=== PATIENT | male | born 1945 | race Caucasian/White ===

== ENCOUNTER 2020-05-20 05:50 | Inpatient (IN) | payer OTHER, MEDICARE ==
[~2020-05-20] VITALS: Ht 172.7 cm; Wt 65.0 kg
[~2020-05-20 05:50] MED LIST: ASPI-1264 PO; IBUP-1986 PO; PANT-47 PO
[2020-05-20] MEDS ORDERED: magnesium 2GM in 50ml NS 50 ML IV ONE (06:10)
[2020-05-20] MEDS ORDERED: acetaminophen 325mg tablet PO ONE (06:10)
[2020-05-20] MEDS ORDERED: ketorolac tromethamine 15mg/ml inj. IV ONE (06:10)
[2020-05-20] MEDS ORDERED: LIDOcaine 5% patch TP ONE (06:10)
[2020-05-20] MEDS ORDERED: orphenadrine citrate 60mg/2ml inj. IM ONE (06:10)
[2020-05-20] MEDS ORDERED: normal saline 1000ML IV soln IV ONE (06:40)
[2020-05-20] MEDS ORDERED: morphine 4 MG/ML inj SYRINge IV ONE (06:50)
[2020-05-20] MEDS ORDERED: ondansetron/PF 4mg/2ml inj IV ONE (06:50)
--- NOTE | 2020-05-20 07:02 | NUR ---
Pt. to CT. with RN
[2020-05-20] MEDS ORDERED: fentaNYL/PF 50MCG/1 ML 2ML syringe IV ONE (07:15)
[2020-05-20] MEDS ORDERED: dexamethasone sod phosphate 10mg/ml inj IV STA ×2 (07:39→07:40)
[2020-05-20] MEDS ORDERED: CefTRIAXone 2gm/D5W 50ml BAG 50 ML IV ONE (07:40)
[2020-05-20] MEDS ORDERED: ampicillin inj 2 GM in normal saline 100ml IV soln 100 ML IV ONE (07:50)
[2020-05-20] MEDS ORDERED: vancomycin/NS 1 GM ADD-VANTAGE 250 ML X 1 DOSE IV ONE (07:55)
[2020-05-20 07:56] LABS: BASOPHILS % (AUTO) 0.2 % (0-1); EOSINOPHILS % (AUTO) 0.1 % (0-6); HEMATOCRIT 46.2 % (42.0-52.0); HEMOGLOBIN 15.5 g/dl (14.0-17.9); LYMPHOCYTES # (AUTO) 1.1 X10'3 (1.1-4.8); LYMPHOCYTES % (AUTO) 8.8 % (21-51); MEAN CORPUSCULAR HEMOGLOBIN 31.3 PG (27.0-31.0); MEAN CORPUSCULAR HGB CONC 33.6 g/dL (33.0-36.5); MEAN PLATELET VOLUME 9.3 FL (7.4-10.4); MONOCYTES # (AUTO) 1.1 X10'3 (0-0.9); MONOCYTES % (AUTO) 8.5 % (2-12); NEUTROPHILS # (AUTO) 10.8 X10'3 (1.8-7.7); NEUTROPHILS % (AUTO) 82.4 % (42-75); PLATELET COUNT 232 X10'3 (140-440); RED BLOOD COUNT 4.97 X10'6 (4.70-6.10); RED CELL DISTRIBUTION WIDTH 12.2 % (11.5-14.5); WHITE BLOOD COUNT 13.1 X10'3 (4.5-11.0)
[2020-05-20] MEDS ORDERED: CefTRIAXone 2gm/D5W 50ml BAG 50 ML IV SCH (08:00)
[2020-05-20 08:44] LABS: ALANINE AMINOTRANSFERASE 31 U/L (12-78); ALBUMIN 3.7 G/DL (3.4-5.0); ALBUMIN/GLOBULIN RATIO 0.9 (1.1-1.5); ALKALINE PHOSPHATASE 80 IU/L (46-116); ANION GAP 9 (8-16); ASPARTATE AMINO TRANSFERASE 15 U/L (10-37); BLOOD UREA NITROGEN 14 MG/DL (7-18); BUN/CREATININE RATIO 8.1 (5.4-32.0); CALCIUM 10.3 MG/DL (8.5-10.1); CHLORIDE 101 MMOL/L (99-107); CREATININE 1.72 MG/DL (0.60-1.10); GLUCOSE 164 MG/DL (70-104); MAGNESIUM 2.1 MG/DL (1.5-2.4); POTASSIUM 4.1 MMOL/L (3.5-5.1); SODIUM 137 MMOL/L (135-145); TOTAL CARBON DIOXIDE 26.7 MMOL/L (24-32); TOTAL PROTEIN 7.8 G/DL (6.4-8.2); eGFR 39 ML/MIN
[2020-05-20 09:00] LABS: GLUCOSE,CSF 99 MG/DL (40-75); TOTAL PROTEIN,CSF 43 MG/DL (30-60)
[2020-05-20 09:10] LABS: APPEARANCE,CSF CLEAR; CSF SUPERNATANT COLOR COLORLESS; CSF VOLUME 8 ML; TUBE# COUNTED 1
[2020-05-20 09:12] LABS: APPEARANCE,CSF CLEAR; CSF RBC 1 /CU MM (0); CSF SUPERNATANT COLOR COLORLESS; CSF VOLUME 8 ML; CSF WBC CT 1 /CU MM (0-5); TUBE# COUNTED 4
[2020-05-20 09:13] LABS: CSF RBC 0 /CU MM (0); CSF WBC CT 2 /CU MM (0-5)
[2020-05-20] MEDS ORDERED: potassium Cl 20 mEq SR tablet PO PRN ×2 (10:00)
[2020-05-20] MEDS ORDERED: magnesium 4gm in 100ml NS 100 ML IV PRN (10:00)
[2020-05-20] MEDS ORDERED: potassium Cl 40MEQ/1/2NS 520ml 520 ML IV PRN ×2 (10:00)
[2020-05-20] MEDS ORDERED: magnesium 2GM in 50ml NS 50 ML IV PRN (10:00)
[2020-05-20] MEDS ORDERED: magnesium Cl slow-release 64mg tablet PO PRN (10:00)
[2020-05-20] MEDS ORDERED: acetaminophen 325mg tablet PO PRN ×2 (10:00)
[2020-05-20] MEDS ORDERED: ondansetron/PF 4mg/2ml inj IV PRN (10:00)
[2020-05-20 10:41] LABS: CLARITY,URINE SLIGHTLY CLOUDY (Clear); COLOR,URINE YELLOW (Yellow); GLUCOSE, URINE 500 mg/dl (Neg); KETONES,URINE NEGATIVE (Neg); LEUKOCYTE ESTERASE ,URINE MODERATE (Neg); NITRITES, URINE NEGATIVE (Neg); OCCULT BLOOD,URINE SMALL (Neg); PROTEIN,URINE TRACE mg/dl (Neg)
[2020-05-20 10:43] LABS: UA COLLECTION TYPE CLN CATCH MIDSTREAM
[2020-05-20 10:47] LABS: BACTERIA,URINE NONE SEEN /HPF (Neg); MUCUS STRANDS NONE SEEN /LPF (Neg); RBC,URINE 0-2 /HPF (0-2); SQUAMOUS EPITHELIAL CELL,UR NONE SEEN /LPF (FEW); WBC,URINE 30-50 /HPF (0-4)
[2020-05-20 10:55] VITALS: BP 144/84
[2020-05-20] MEDS: normal saline 1000ml 1,000 ML IV SCH ×2 (11:56→20:00)
--- NOTE | 2020-05-20 14:18 | NUR ---
Patient asleep not easily aroused. Addendum: 05/20/20 at 1420 by Lawrence EL RN Amended: Links added.
[2020-05-20] MEDS ORDERED: morphine 2 MG/ML inj. syringe IV PRN (16:55)
[2020-05-20] MEDS ORDERED: HYDROcodone/acetaminophen 5mg/325mg tablet PO PRN (16:55)
[2020-05-20 18:00] VITALS: BP 133/80
--- NOTE | 2020-05-20 18:22 | NUR ---
Patient in room [facility]TH[facility] 4010. I have received report from MARTA Bravo and had the opportunity to ask questions and assume patient care.
[2020-05-20] MEDS: heparin, porcine 5000 units/ml vial SQ SCH (19:27)
[2020-05-20] MEDS: K and/or MAG REPLACEMENT MC SCH (19:28)
[2020-05-20 22:00] VITALS: BP 145/89
--- NOTE | 2020-05-20 22:05 | NUR ---
Discovered patient had torn apart the scd sleeves on accident and was trying to move the table, slightly disorientated at this time.
[2020-05-21] MEDS: normal saline 1000ml 1,000 ML IV SCH ×3 (00:34→21:15)
--- NOTE | 2020-05-21 06:32 | NUR ---
Problems reprioritized. Patient report given, questions answered & plan of care reviewed with MARTA Garcia and MARTA Payan.
--- NOTE | 2020-05-21 06:33 | NUR ---
Patient in room ORTH[facility] 4010. I have received report from Funmilayo and had the opportunity to ask questions and assume patient care.
[2020-05-21 06:40] VITALS: BP 126/85
[2020-05-21 06:57] LABS: BASOPHILS # (AUTO) 0.1 X10'3 (0-0.2); BASOPHILS % (AUTO) 0.5 % (0-1); EOSINOPHILS % (AUTO) 0 % (0-6); HEMATOCRIT 43.8 % (42.0-52.0); HEMOGLOBIN 14.6 g/dl (14.0-17.9); LYMPHOCYTES # (AUTO) 1.4 X10'3 (1.1-4.8); LYMPHOCYTES % (AUTO) 8.5 % (21-51); MEAN CORPUSCULAR HEMOGLOBIN 31.5 PG (27.0-31.0); MEAN CORPUSCULAR HGB CONC 33.2 g/dL (33.0-36.5); MEAN CORPUSCULAR VOLUME 94.7 FL (78-98); MEAN PLATELET VOLUME 9.1 FL (7.4-10.4); MONOCYTES # (AUTO) 1.5 X10'3 (0-0.9); MONOCYTES % (AUTO) 9.1 % (2-12); NEUTROPHILS # (AUTO) 13.1 X10'3 (1.8-7.7); NEUTROPHILS % (AUTO) 81.9 % (42-75); PLATELET COUNT 229 X10'3 (140-440); RED BLOOD COUNT 4.63 X10'6 (4.70-6.10); RED CELL DISTRIBUTION WIDTH 12.3 % (11.5-14.5)
[2020-05-21 07:34] LABS: ALANINE AMINOTRANSFERASE 30 U/L (12-78); ALBUMIN 3.1 G/DL (3.4-5.0); ALBUMIN/GLOBULIN RATIO 0.8 (1.1-1.5); ALKALINE PHOSPHATASE 64 IU/L (46-116); ANION GAP 9 (8-16); ASPARTATE AMINO TRANSFERASE 20 U/L (10-37); BILIRUBIN,TOTAL 0.6 MG/DL (0.1-1.0); BLOOD UREA NITROGEN 19 MG/DL (7-18); CALCIUM 9.8 MG/DL (8.5-10.1); CHLORIDE 105 MMOL/L (99-107); CREATININE 1.72 MG/DL (0.60-1.10); GLUCOSE 132 MG/DL (70-104); MAGNESIUM 2.1 MG/DL (1.5-2.4); POTASSIUM 3.9 MMOL/L (3.5-5.1); SODIUM 140 MMOL/L (135-145); TOTAL CARBON DIOXIDE 25.7 MMOL/L (24-32); TOTAL PROTEIN 7.2 G/DL (6.4-8.2); eGFR 39 ML/MIN
[2020-05-21] MEDS ORDERED: ESOM20CA PO (07:49)
[2020-05-21] MEDS ORDERED: ASPI81TA52 PO (07:49)
--- NOTE | 2020-05-21 07:49 | NUR ---
Meds reconciled with Wen on the telephone
[2020-05-21] MEDS: K and/or MAG REPLACEMENT MC SCH ×2 (08:00→20:00)
--- NOTE | 2020-05-21 09:39 | NUR ---
PAGER ID: [phone] MESSAGE: [id number] still very confused, here, suspected UTI no abx, painful right occiput. [id number] [place]
--- NOTE | 2020-05-21 09:46 | NUR ---
states patient drinks 6+ beers daily.
--- NOTE | 2020-05-21 09:46 | NUR ---
When performing physical assessment this AM patient stated that he drinks six coors lights daily and does not drink water. Patient is not showing any symptoms of withdrawal at this time.
[2020-05-21 10:25] VITALS: BP 141/96
[2020-05-21] MEDS: heparin, porcine 5000 units/ml vial SQ SCH ×2 (10:36→20:16)
[2020-05-21] MEDS: CefTRIAXone/D5W-Rocephin 1gm 50 ML IV SCH (11:28)
[2020-05-21] MEDS ORDERED: diazepam 5mg tablet PO ONE (12:10)
[2020-05-21 18:00] VITALS: BP 125/86
--- NOTE | 2020-05-21 18:00 | NUR ---
IP orientee documentation: I have reviewed and agree with all interventions, assessments performed and documented by Joe Anders.
--- NOTE | 2020-05-21 18:25 | NUR ---
Problems reprioritized. Patient report given, questions answered & plan of care reviewed with Hanane.
[2020-05-21 22:00] VITALS: BP 124/79
[2020-05-22 06:00] VITALS: BP 139/87
--- NOTE | 2020-05-22 06:28 | NUR ---
Patient in room ORTH[facility] 4010. I have received report from Hanane LOZANO and had the opportunity to ask questions and assume patient care.
--- NOTE | 2020-05-22 06:40 | NUR ---
Patient in room ORTHO 4010B. I have received report from MARTA Koo and had the opportunity to ask questions and assume patient care. MARTA Hernandez will care for pt, I am precepting Mary and will monitor all care.
[2020-05-22 06:53] LABS: BASOPHILS % (AUTO) 0.3 % (0-1); EOSINOPHILS # (AUTO) 0.2 X10'3 (0-0.9); EOSINOPHILS % (AUTO) 1.9 % (0-6); HEMATOCRIT 40.1 % (42.0-52.0); HEMOGLOBIN 13.6 g/dl (14.0-17.9); LYMPHOCYTES # (AUTO) 1.8 X10'3 (1.1-4.8); LYMPHOCYTES % (AUTO) 20.8 % (21-51); MEAN CORPUSCULAR HEMOGLOBIN 31.7 PG (27.0-31.0); MEAN CORPUSCULAR HGB CONC 33.8 g/dL (33.0-36.5); MEAN CORPUSCULAR VOLUME 93.9 FL (78-98); MEAN PLATELET VOLUME 9.9 FL (7.4-10.4); MONOCYTES # (AUTO) 0.8 X10'3 (0-0.9); NEUTROPHILS # (AUTO) 5.8 X10'3 (1.8-7.7); PLATELET COUNT 213 X10'3 (140-440); RED BLOOD COUNT 4.28 X10'6 (4.70-6.10); RED CELL DISTRIBUTION WIDTH 12.3 % (11.5-14.5); WHITE BLOOD COUNT 8.5 X10'3 (4.5-11.0)
[2020-05-22] MEDS: CefTRIAXone/D5W-Rocephin 1gm 50 ML IV SCH (07:09)
[2020-05-22] MEDS: heparin, porcine 5000 units/ml vial SQ SCH (07:10)
[2020-05-22] MEDS: normal saline 1000ml 1,000 ML IV SCH (07:11)
[2020-05-22 07:27] LABS: ALANINE AMINOTRANSFERASE 35 U/L (12-78); ALBUMIN 2.7 G/DL (3.4-5.0); ALBUMIN/GLOBULIN RATIO 0.8 (1.1-1.5); ALKALINE PHOSPHATASE 52 IU/L (46-116); ANION GAP 8 (8-16); ASPARTATE AMINO TRANSFERASE 29 U/L (10-37); BILIRUBIN,TOTAL 0.5 MG/DL (0.1-1.0); BLOOD UREA NITROGEN 20 MG/DL (7-18); CALCIUM 9.2 MG/DL (8.5-10.1); CHLORIDE 106 MMOL/L (99-107); CREATININE 1.43 MG/DL (0.60-1.10); GLUCOSE 110 MG/DL (70-104); POTASSIUM 3.9 MMOL/L (3.5-5.1); SODIUM 138 MMOL/L (135-145); TOTAL CARBON DIOXIDE 23.9 MMOL/L (24-32); TOTAL PROTEIN 6.2 G/DL (6.4-8.2); eGFR 48 ML/MIN
[2020-05-22] MEDS ORDERED: pantoprazole 40mg Tablet.DR PO SCH (07:30)
[2020-05-22] MEDS: K and/or MAG REPLACEMENT MC SCH (08:00)
[2020-05-22] MEDS ORDERED: aspirin 81mg tablet.DR PO SCH (08:00)
[2020-05-22] MEDS ORDERED: diazepam 5mg tablet PO PRN (10:20)
[2020-05-22 11:00] VITALS: BP 139/92
--- NOTE | 2020-05-22 13:44 | NUR ---
assessed pt after giving valium. pt stated that he feels like it is working well with no confusion. MD advised.
[2020-05-22] MEDS ORDERED: IBUP-1986 PO (13:48)
[2020-05-22] MEDS ORDERED: CIPR-202 PO (13:48)
[2020-05-22] MEDS ORDERED: DIAZ-63 PO (13:48)
--- NOTE | 2020-05-22 16:05 | NUR ---
Patient discharged to home with at 1550. Discharge instructions given to patient as well as . Pt educated on new medications/continued medications. Tele pack/IV removed. Belongings sent with patient. Pt in stable condition upon discharge. Educated pt to follow up with PCP within 1 week.
--- NOTE | 2020-05-22 16:17 | NUR ---
Orientee documentation: I have reviewed and agree with all interventions, assessments performed and documented by MARTA Hernandez.
[2020-05-22] MEDS ORDERED: lactobacillus rhamnosus 10,000 MMU CELLS/CAPSULE PO SCH (20:00)
--- NOTE | 2020-05-23 10:03 | NUR ---
CASE MANAGEMENT DISCHARGE FOLLOW UP: Spoke with pt via telephone. Reports that he is feeling pretty good; denies CP, SOB/dyspnea, fever/chills. Verbalizes understanding of s/sx requiring further evaluation/emergent assistance. Verbalizes understanding of new and current medications, states is picking up new Rx at this time. Verbalizes compliance with MD discharge instructions. Verbalizes understanding of the importance in making/keeping follow-up appointments, [facility] States no further questions/concerns at this time.
== END 2020-05-22 15:45 | disposition home health service (06) | DRG 689 ==
LOC: ER 05:51 → ED HOLD 10:00 → ORTHO 4S 10:55 → OBSVTOIN 05-22 10:40
PROVIDERS: ADMIT Internal Medicine; ATTEND Internal Medicine
PROC: 009U3ZX Drainage of Spinal Canal, Percutaneous Approach, Diagnostic (ICD-10-PCS; principal; 2020-05-20)
DX: N39.0 Urinary tract infection, site not specified (principal); G93.41 Metabolic encephalopathy; N18.30 Chronic kidney disease, stage 3 unspecified; I48.91 Unspecified atrial fibrillation; G89.29 Other chronic pain; M54.2 Cervicalgia; Z20.822 Contact with and (suspected) exposure to COVID-19; D72.829 Elevated white blood cell count, unspecified; Z88.8 Allergy status to other drugs, medicaments and biological substances
CPT/HCPCS: 36415; 62270; 70200; 70450; 70544; 70551; 71045; 72125; 80053; 81001; 82945; 83605; 83735; 84145; 84157; 85025; 87015; 87040; 87070; 87081; 87088; 87210; 87635; 89051; 92508; 92616; 93005; 97110; 97116; 97162; 99285; C9803; G0378; J0290; J0696; J1100; J1644; J2270; J2405; J3010; J3370; J7030